=== PATIENT | female | born 1965 | race American Indian/Alaskan Native ===

== ENCOUNTER 2018-07-27 20:04 | Emergency (ER) | payer OTHER ==
[2018-07-27 20:49] VITALS: TEMP 98.5
[2018-07-27] MEDS ORDERED: Amoxicillin-Clav 875-125 mg Tab PO STA (21:32)
[2018-07-27] MEDS ORDERED: Amoxicillin-Clav 875-125 mg Tab PO ONE (21:51)
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
[2018-07-27] MEDS ORDERED: Tdap Vaccine 0.5 ml Vial (10-64 yrs) IM ONE (23:32)
[2018-07-28] MEDS ORDERED: Tdap Vaccine 0.5 ml Vial (10-64 yrs) IM ONE (00:26)
[2018-07-28 00:31] VITALS: BP 118/80; PULSE 70; RESP 20; O2SAT 98
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
== END 2018-07-28 00:29 | disposition home or self-care (01) ==
LOC: H.ER 20:04
DX: M54.9 Dorsalgia, unspecified (principal); Y04.0XXA Assault by unarmed brawl or fight, initial encounter; Y99.0 Civilian activity done for income or pay
CPT/HCPCS: 72131; 90471; 90715; 96372; 99283; J1885